=== PATIENT | male | born 2000 | race African-American/Black ===

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

== ENCOUNTER 2021-05-09 09:49 | Day surgery (SDC) | payer OTHER ==
[2021-05-02 15:26] VITALS: BMI 40.6
[~2021-05-09 09:49] MED LIST changes: -ACETAMINOPHEN TAB 500 MG TAB PO ONE; +ACETAMINOPHEN TAB 500 MG TAB PO PRN; -DEXAMETHASONE SOD PHOSPHATE 10 MG/ML 1 ML VIAL IV ONE; -HEPARIN SODIUM,PORCINE 5,000 UNIT/ML 1 ML VIAL SQ ONE; +HEPARIN SODIUM,PORCINE/PF 5,000 UNIT/0.5 ML SYRINGE SQ PRN; -HYDROmorphone 0.5 MG/0.5 ML SYRINGE IVP PRN; -LACTATED RINGERS 1,000 ML IV SCH; -LIDOCAINE 1% (10MG/ML) FOR IV START INTRADERMA PRN; -MIDAZOLAM 2 MG/2 ML VIAL IV PRN; -ONDANSETRON 4 MG/2 ML VIAL IVP ONE; -ceFAZolin 3 GM in SODIUM CHLORIDE 0.9% 100 ML IVPB ONE; +ceFAZolin 3 GM in SODIUM CHLORIDE 0.9% 100 ML IVPB PRN; -fentaNYL (PF) 50 MCG/ML 2 ML AMP IV PRN; -metroNIDAZOLE-NS PMX 500 MG in SALINE 1 100ML.BAG IVPB ONE; +metroNIDAZOLE-NS PMX 500 MG in SALINE 1 100ML.BAG IVPB PRN
[2021-05-09] MEDS ORDERED: ONDANSETRON 4 MG/2 ML VIAL ONE (10:17)
[2021-05-09] MEDS ORDERED: LACTATED RINGERS 1,000 ML IV ONE (10:21)
[2021-05-09] MEDS ORDERED: ONDANSETRON 4 MG/2 ML VIAL IVP ONE (10:21)
[2021-05-09] MEDS ORDERED: LIDOCAINE 1% (10MG/ML) FOR IV START INTRADERMA ONE (10:21)
[2021-05-09] MEDS ORDERED: DEXAMETHASONE SOD PHOSPHATE 4 MG/ML 1 ML VIAL IV ONE (10:22)
--- NOTE | 2021-05-09 10:26 | P.GSHP ---
History of Present Illness H&P Date: 05/09/21 Chief Complaint: Chronic pilonidal cyst Is a 20-year-old male who presents today for excision of a chronically inflamed pilonidal cyst. Past Medical History Past Medical History: No Reported History Additional Past Medical History / Comment(s): Hx of and current pilonidal cyst. History of Any Multi-Drug Resistant Organisms: None Reported Past Surgical History: No Surgical Hx Reported Additional Past Surgical History / Comment(s): Teeth removed X2 under anesthesia (ages 3 and 5), pilondial cyst removed. Past Anesthesia/Blood Transfusion Reactions: No Reported Reaction Past Psychological History: No Psychological Hx Reported Smoking Status: Vaper Past Alcohol Use History: None Reported Past Drug Use History: None Reported - Past Family History Mother Family Medical History: No Reported History Medications and Allergies Home Medications Medication Instructions Recorded Confirmed Type No Known Home Medications 05/02/21 05/09/21 History Allergies Allergy/AdvReac Type Severity Reaction Status Date / Time No Known Allergies Allergy Verified 05/09/21 10:05 Surgical - Exam Vital Signs Temp Pulse Resp BP Pulse Ox 97.7 F 79 18 138/64 96 05/09/21 10:13 05/09/21 10:13 05/09/21 10:13 05/09/21 10:13 05/09/21 10:13 - General well developed, well nourished, no distress - Eyes PERRL - ENT normal pinna - Neck no masses - Respiratory normal expansion - Cardiovascular Rhythm: regular - Abdomen Abdomen: soft, non tender - Integumentary Chronically inflamed pilonidal cyst Assessment and Plan Assessment: Chronically inflamed phimosis. We'll perform excision. Patient is aware that we will be packed and require wound care postoperatively
[2021-05-09] MEDS ORDERED: fentaNYL (PF) 50 MCG/ML 2 ML AMP ONE (10:42)
[2021-05-09] MEDS ORDERED: MIDAZOLAM 2 MG/2 ML VIAL ONE (10:42)
[2021-05-09] MEDS ORDERED: SUCCINYLCHOLINE CHLORIDE VIAL 200 MG/10 ML VIAL IV ONE (10:42)
[2021-05-09] MEDS ORDERED: LIDOCAINE 1% INJ 10MG/ML (20 ML MDV) ONE (10:42)
[2021-05-09] MEDS ORDERED: PROPOFOL 10 MG/ML 20 ML VIAL IV ONE (10:42)
--- NOTE | 2021-05-09 11:36 | P.OP ---
Date of Procedure: 05/09/21 Preoperative Diagnosis: Pilonidal cyst Postoperative Diagnosis: Pilonidal cyst Procedure(s) Performed: Excision of pilonidal cyst Anesthesia: GEORGE Surgeon: Alonzo Blank Pathology: other (Pilonidal cyst) Condition: stable Disposition: PACU Description of Procedure: The patient's placed on the operative table in the prone position. He received general anesthesia. The prognosis was prepped and draped usual fashion. Using a 15 blade the skin was incised in elliptical skin incision was made around the pilonidal cyst. Cautery the prognosis was excised to pathology. The wound was packed with wet-to-dry Kerlix. Patient top she will was sent to recovery room in stable condition.
[2021-05-09 11:39] VITALS: TEMP 98.5
[2021-05-09] MEDS ORDERED: HYDROmorphone 0.5 MG/0.5 ML SYRINGE IVP ONE (12:30)
[2021-05-09 13:44] VITALS: RESP 16
[2021-05-09 13:57] VITALS: BP 124/68; PULSE 77
== END 2021-05-09 13:40 | disposition home health service (06) ==
LOC: OR 09:49
PROVIDERS: ATTEND Surgery
DX: L05.01 Pilonidal cyst with abscess (principal); F17.290 Nicotine dependence, other tobacco product, uncomplicated; Z98.890 Other specified postprocedural states
CPT/HCPCS: 88304; 11770; J2250; J0330; J1100; J0690; J2405; J2001; J3010; J2704; J1170; J1644

== ENCOUNTER 2021-12-04 17:52 | Emergency (ER) | payer OTHER ==
[2021-12-04 18:01] VITALS: BP 139/82; PULSE 99; RESP 18; TEMP 98.2
[2021-12-04] MEDS ORDERED: LIDOCAINE 1% INJ 10MG/ML (5 ML VIAL-PF) SQ STA (18:16)
--- NOTE | 2021-12-04 19:05 | ED ---
General Adult HPI - General Chief complaint: Skin/Abscess/Foreign Body Stated complaint: foreign object in R arm Source: patient Mode of arrival: ambulatory Limitations: no limitations - History of Present Illness Initial comments: 21-year-old male presents to emergency department with a fish hook stuck in his right a cubital region. He was fishing with a dirty hook when he accidentally got it lodged underneath the skin. He did not attempt removal. His tetanus is up-to-date. No active bleeding at this time. No other alleviating, vice president risk management modifying factors - Related Data Previous Rx's Medication Instructions Recorded Acetaminophen Tab [Tylenol] 650 mg PO Q6H #30 tab 05/09/21 Docusate [Colace] 100 mg PO BID #20 capsule 05/09/21 Ibuprofen [Motrin] 600 mg PO Q6HR PRN #40 tab 05/09/21 oxyCODONE HCL [OxyIR] 5 mg PO Q6H PRN 3 Days #10 tab 05/09/21 Cephalexin [Keflex] 500 mg PO Q6HR #12 cap 12/04/21 Allergies Allergy/AdvReac Type Severity Reaction Status Date / Time No Known Allergies Allergy Verified 12/04/21 18:01 Review of Systems ROS Statement: Those systems with pertinent positive or pertinent negative responses have been documented in the HPI. ROS Other: All systems not noted in ROS Statement are negative. Past Medical History Past Medical History: No Reported History Additional Past Medical History / Comment(s): Hx of and current pilonidal cyst. History of Any Multi-Drug Resistant Organisms: None Reported Past Surgical History: No Surgical Hx Reported Additional Past Surgical History / Comment(s): Teeth removed X2 under anesthesia (ages 3 and 5), pilondial cyst removed. Past Anesthesia/Blood Transfusion Reactions: No Reported Reaction Past Psychological History: No Psychological Hx Reported Smoking Status: Vaper Past Alcohol Use History: None Reported Past Drug Use History: None Reported - Past Family History Mother Family Medical History: No Reported History General Exam Limitations: no limitations General appearance: alert, in no apparent distress Head exam: Present: atraumatic, normocephalic, normal inspection Extremities exam: Present: other (3 pronged fish hook with 2 of 3 prongs embedded in antecubital fossa. no bleeding from site) Course Vital Signs 12/04/21 17:58 Temperature 98.2 F Pulse Rate 99 Respiratory 18 Rate Blood Pressure 139/82 O2 Sat by Pulse 99 Oximetry Procedures - Forgein Body Removal Soft Tissue Consent Obtained: verbal consent Site: upper extremity Anesthetic Used: lidocaine 1% Amount (mLs): 5 Foreign Body Suspected: Fish Hook Foreign Body Removed: yes Foreign Body Removal Technique: Instrumentation Patient Tolerated Procedure: well, no complications Medical Decision Making - Medical Decision Making Upon arrival patient was placed into room 31. Thorough history and physical exam was performed. I did anesthetize the area using 5 mL of 1% lidocaine without epinephrine. Adequate analgesia was obtained. I then fed the hook forward and fishhook came out other side. Players were then used to snap the gumaro off and the entire fishhook was removed. No active bleeding. Small incision at the site will close via secondary intention. There was a Steri- Strip placed over the site. Patient is placed on antibiotics as it was a dirty. Instructed to keep the area clean and dry. Follow-up for repeat evaluation if he has increasing redness, swelling or pustular drainage. Patient was agreeable and was discharged home in stable condition Disposition Clinical Impression: Fish hook in upper arm Disposition: HOME SELF-CARE Condition: Stable Instructions (If sedation given, give patient instructions): Soft Tissue Foreign Body (ED) Additional Instructions: Keep the area clean and dry. Take antibiotics as directed. Follow up with your primary care doctor in 2-4 days. Prescriptions: Cephalexin [Keflex] 500 mg PO Q6HR #12 cap Is patient prescribed a controlled substance at d/c from ED?: No Referrals: Cordell Anderson Jr, DO [Primary Care Provider] - 1-2 days Time of Disposition: 19:05
== END 2021-12-04 19:16 | disposition home or self-care (01) ==
LOC: EC 17:52
DX: S50.851A Superficial foreign body of right forearm, initial encounter (principal); F17.209 Nicotine dependence, unspecified, with unspecified nicotine-induced disorders; W45.8XXA Other foreign body or object entering through skin, initial encounter
CPT/HCPCS: 99283; 10120; J2001

== ENCOUNTER → 2022-09-13 | Outpatient (CLI) | payer OTHER ==
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
== END | disposition home or self-care (01) ==
LOC: RADCTMAIN 17:04
PROVIDERS: ATTEND Orthopaedic Surgery Hand Surgery
DX: S52.571A Other intraarticular fracture of lower end of right radius, initial encounter for closed fracture (principal); S52.614A Nondisplaced fracture of right ulna styloid process, initial encounter for closed fracture; V86.95XA Unspecified occupant of 3- or 4- wheeled all-terrain vehicle (ATV) injured in nontraffic accident, initial encounter

== ENCOUNTER 2022-09-18 09:05 | Day surgery (SDC) | payer OTHER ==
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
[~2022-09-18 09:05] MED LIST changes: -ACETAMINOPHEN TAB 500 MG TAB PO PRN; -HEPARIN SODIUM,PORCINE/PF 5,000 UNIT/0.5 ML SYRINGE SQ PRN; +HYDROmorphone 0.5 MG/0.5 ML SYRINGE IVP PRN; +LACTATED RINGERS 1,000 ML IV SCH; +LIDOCAINE 1% (10MG/ML) FOR IV START INTRADERMA PRN; +ONDANSETRON 4 MG/2 ML VIAL IVP ONE; -metroNIDAZOLE-NS PMX 500 MG in SALINE 1 100ML.BAG IVPB PRN
[2022-09-18] MEDS ORDERED: MIDAZOLAM 2 MG/2 ML VIAL IVP ONE (09:53)
[2022-09-18] MEDS ORDERED: fentaNYL (PF) 50 MCG/ML 2 ML AMP IVP ONE (09:53)
[2022-09-18] MEDS ORDERED: DEXAMETHASONE SOD PHOSPHATE 4 MG/ML 1 ML VIAL IVP ONE (10:14)
[2022-09-18] MEDS ORDERED: HYDROmorphone (PF) 1 MG/ML ONE (10:23)
[2022-09-18] MEDS ORDERED: DEXAMETHASONE SOD PHOSPHATE 4 MG/ML 1 ML VIAL ONE (10:23)
[2022-09-18] MEDS ORDERED: LIDOCAINE 2% INJ 20 MG/ML (2 ML VIAL) ONE (10:23)
[2022-09-18] MEDS ORDERED: ROPIVACAINE 5 MG/ML 30 ML VIAL ONE (10:23)
[2022-09-18] MEDS ORDERED: KETAMINE 10 MG/ML 20 ML VIAL ONE (10:23)
[2022-09-18] MEDS ORDERED: PROPOFOL 10 MG/ML 20 ML VIAL IV ONE (10:23)
[2022-09-18] MEDS ORDERED: GLYCOPYRROLATE 0.2 MG/ML 2 ML VIAL ONE (10:23)
[2022-09-18] MEDS ORDERED: LACTATED RINGERS 1,000 ML IV ONE (12:46)
[2022-09-18 14:35] VITALS: TEMP 98
[2022-09-18 15:34] VITALS: BP 131/74
[2022-09-18 15:35] VITALS: PULSE 105; RESP 18
--- NOTE | 2022-09-18 19:42 | P.OP ---
Date of Procedure: 09/18/22 Preoperative Diagnosis: 1.) Right intra-articular distal radius fracture dislocation Postoperative Diagnosis: 1.) Right intra-articular distal radius fracture dislocation Procedure(s) Performed: 1.) Right intra-articular distal radius fracture dislocation open reduction internal fixation 2.) Repair of volar capsular ligament tear 3.) Right open carpal tunnel release Implants: 1.) Arthrex radial styloid locking plate 2.) Arthrex 1.75 Nanocork screw FT suture anchors x2 Anesthesia: GEORGE, regional Surgeon: Raad Gooedn Sales Analytics Manager #1: Markus Beaulieu Estimated Blood Loss (ml): 30 Pathology: none sent Condition: stable Disposition: PACU Description of Procedure: This is a 22 year old male who presents today for surgical intervention for a complex comminuted intra-articular distal radius fracture dislocation. Risks and benefits of surgery were discussed with the patient including bleeding, damage to surrounding tissue, infection, need for further surgery as well as risks of anesthesia including pulmonary embolism and even and the patient wished to proceed with surgical intervention. The patient was seen in the pre-operative area by myself. Consent and H&P were completed and updated. The correct extremity was marked in the pre-operative area by myself and all other questions were answered. Operative Narrative: The patient was brought to the operating room by the department of anesthes ia. They remained on the portable stretcher and a rolling hand table was brought to the side of the operative extremity. Pre-operative time out was performed indicating the correct patient, procedure and laterality. All in the room agreed. Pre-operative antibiotics were given prior to skin incision. The patient was then drifted off to sleep by the department of anesthesia. A nonsterile tourniquet was then applied to the operative extremity and the right upper extremity was then prepped and draped in normal sterile fashion. The operative extremity was the exsanguinated with an esmarch bandage and the tourniquet was inflated to 250mmHg. 15 blade scalpel was used to make a longitudinal skin incision centered over the radial styloid. Blunt dissection was taken down to the the first dorsal compartment while taking care to identify and protect branches of the superficial radial sensory nerve. The first dorsal compartment was released in its entirety from proximal to distal. APL and EPB tendons were identified and retracted volarly and interval between the first and second dorsal compartment was identified and the fracture was identified. There was extensive dorsal comminution on the dorsoradial aspect of the radial styloid. The radiocarpal dislocation was reduced with reduction maneuver the radial styloid fragment was then held in place with multiple K-wires. Attention was then drawn to the volar wrist. An extensile carpal tunnel approach was performed. 15 blade scalpel was utilized to make a longitudinal incision on the palmar skin in line with the radial boarder of the ring finger to a point distally at the intersection of Kaplans cardinal line. Retractors were then placed and scalpel was used to cut through the superficial palmar fascia to reveal the transverse carpal ligament. The transverse carpal ligament was then sharply incised in line with the incision and tenotomy scissors were used to spread distally and the distal portion of the transverse carpal ligament was released using tenotomy scissors from distal to proximal under direct visualization. The incision was then extended proximally crossing the wrist joint parallel to the wrist crease ulnarly and then extending the incision proximally to avoid branches of the palmar cutaneous branch of the median nerve. The distal forearm fascia was then incised. The median nerve was directly visualized and was intact and the carpal tunnel was released in it's entirety. Interval between the median nerve and FPL was identified to reveal the volar wrist capsule. There was a complete disruption of the volar capsule with disruption of the short and long radiolunate ligaments and I was able to directly visualize the articular surface through the ruptured capsule/ligaments. Reduction was held with a dental pick to directy visualize and reduce the articular fragment. The fragment was very unstable rotationally and had a tendency to rotate posteriorly due to the lack of dorsal support from the posterior comminution. A dental pick was used to hold the reduction after K-wires were removed and then were re-inserted to hold a better articular reduction which was confirmed on imaging. The volar capsule was then repaired with two 1.75mm Arthrex viet corksrew FT suture anchors and a solid repair of the volar capsular ligaments was performed with 3-0 fiberwire suture in a horizontal mattress fashion, this aided in reduction. Attention was then drawn back to the radial styloid incision. An Arthrex radial styloid plate was then inserted over the central K-wire and a non locking screw was placed proximally in the plate to compress the plate to the bone. Locking screws were then inserted in the radial styloid fragment and final k-wires were removed. Reduction was confirmed on imaging of both the fracture and radiocarpal articulation and the wound was then irrigated and closure was performed with 4-0 Monocryl suture and 4-0 nylon suture. Long arm sugar tong splint was applied. Tournquet was let down and the hand had immediate perfusion. Markus DAHL was present for the case to assist in hardware placement and fracture reduction. The patient was then woken by the department of anesthesia and transferred to PACU in stable condition. Raad Gooden D.O. Orthopedic Hand/Upper Extremity Surgeon
== END 2022-09-18 16:24 | disposition home or self-care (01) ==
LOC: OR 09:05
PROVIDERS: ATTEND Orthopaedic Surgery Hand Surgery
DX: S52.571A Other intraarticular fracture of lower end of right radius, initial encounter for closed fracture (principal); S52.511A Displaced fracture of right radial styloid process, initial encounter for closed fracture; G56.01 Carpal tunnel syndrome, right upper limb; K21.9 Gastro-esophageal reflux disease without esophagitis; F12.90 Cannabis use, unspecified, uncomplicated; X58.XXXA Exposure to other specified factors, initial encounter; F17.290 Nicotine dependence, other tobacco product, uncomplicated; Z79.1 Long term (current) use of non-steroidal anti-inflammatories (NSAID)
CPT/HCPCS: 25608; 25652; 64721; 64415; C1713; J2250; J1100; J0690; J2405; J3010; J1170; J2795; J2704; J2001